=== PATIENT | female | born 1955 | race Caucasian/White ===

== ENCOUNTER → 2021-05-22 | Day surgery (SDC) | payer MEDICARE ==
[2021-05-19 09:57] LABS: BASOPHILS # (AUTO) 0.1 (0.0-0.1); BASOPHILS % 1.1 % (0.0-1.0); EOSINOPHILS % 0.6 % (0.0-6.0); HEMATOCRIT 40.3 % (34.2-44.1); HEMOGLOBIN 12.9 g/dL (12.0-16.0); LYMPHOCYTES # (AUTO) 1.5 (1.0-3.2); LYMPHOCYTES % 21.1 % (18.0-39.1); MEAN CORPUSCULAR HEMOGLOBIN 31.5 pg (28-32); MEAN CORPUSCULAR VOLUME 98.3 fL (81-99); MONOCYTES # (AUTO) 0.7 (0.2-0.8); MONOCYTES % 10.3 % (4.4-11.3); NEUTROPHILS # (AUTO) 4.8 (2.1-6.9); NEUTROPHILS % 66.6 % (38.7-80.0); PLATELET COUNT 316 x10e3/uL (140-360); RED CELL DISTRIBUTION WIDTH 15.7 % (11.7-14.4)
[2021-05-19 10:16] LABS: INR 0.9; PROTHROMBIN TIME 12.9 seconds (11.9-14.5)
[2021-05-19 10:17] LABS: ALBUMIN 3.7 g/dL (3.5-5.0); ALBUMIN/GLOBULIN RATIO 1.1 (0.8-2.0); ANION GAP 13.3 mmol/L (8-16); CALCIUM 9.1 mg/dL (8.4-10.2); CHOL/HDL RATIO 2.5 (3.0-3.6); CREATININE, SERUM 1.31 mg/dL (0.57-1.11); POTASSIUM 4.3 mmol/L (3.5-5.1)
[~2021-05-22] VITALS: Ht 165.1 cm; Wt 63.5 kg
[2021-05-22] VITALS (8 sets, daily range): BP systolic 99–112; BP diastolic 56–69
[~2021-05-22] MED LIST: ADENOSINE 3MG/1ML 30ML VIAL ONE; ASPIRIN81 MG PO; ATORVASTATIN CA20 MG PO; BRILINTA90 MG PO; FENTANYL CITRATE/PF 100MCG/2 ML INJ ONE; FUROSEMIDE40 MG PO; HEPARIN SOD/SOD CHLORIDE 2,000 ML ONE; IOPAMIDOL 370 MG/ML 200 ML INFUS..BTL INJ ONE; ISOSORBIDE MONO30 MG PO; LIDOCAINE HCL 2% LOCAL 20 ML VIAL ONE; MIDAZOLAM HCL 2 MG/2 ML VIAL ONE; SODIUM CHLORIDE 0.9% 1000ML 1,000 ML ONE; SODIUM CHLORIDE 0.9% 50ML 50 ML ONE; VERAPAMIL HCL 2.5 MG/ML 2 ML VIAL ONE
== END | disposition home or self-care (01) ==
LOC: CATH LAB 07:48
PROVIDERS: ATTEND Internal Medicine Cardiovascular Disease
DX: I25.10 Atherosclerotic heart disease of native coronary artery without angina pectoris (principal); R94.39 Abnormal result of other cardiovascular function study; Z95.5 Presence of coronary angioplasty implant and graft; Z01.812 Encounter for preprocedural laboratory examination; Z20.822 Contact with and (suspected) exposure to COVID-19; Z79.82 Long term (current) use of aspirin
CPT/HCPCS: 36415; 76937; 80053; 80061; 85025; 85610; 93458; 93571; C1725; C1760; C1769; C1894; J0153; J2001; J2250; J3010; J7030; Q9967; U0002; 75625; 99152; 99153